=== PATIENT | female | born 1990 | race Caucasian/White ===

== ENCOUNTER 2019-05-25 07:30 | Inpatient (IN) | payer BC ==
[2019-05-25] MEDS ORDERED: Sodium Chloride 0.9% 10 ML SDV IV PRN (09:53)
[2019-05-25] MEDS ORDERED: Ondansetron 4 MG/2 ML SDV IVPUSH PRN (09:53)
[2019-05-25] MEDS ORDERED: Butorphanol 1 MG/ML SDV IVPUSH PRN (09:53)
[2019-05-25] MEDS ORDERED: Sodium Chloride 0.9% 2.5 ML Syringe FLUSH PRN (09:53)
[2019-05-25] MEDS ORDERED: Nalbuphine 10 MG/1 ML Vial IVPUSH PRN (09:53)
[2019-05-25] MEDS ORDERED: Tranexamic Acid 1,000 MG in Sodium Chloride 0.9% 100 ML IV PRN (09:53)
[2019-05-25] MEDS ORDERED: Sodium Chloride 0.9% 10 ML Syringe FLUSH PRN (09:53)
[2019-05-25] MEDS ORDERED: Water For Irrigation,Sterile 1,000 ML Container IRR PRN (09:53)
[2019-05-25] MEDS ORDERED: Carboprost Tromethamine 250 MCG/1 ML Amp IM PRN (09:53)
[2019-05-25] MEDS ORDERED: Lidocaine 1% 50 ML MDV INJECT PRN (09:53)
[2019-05-25] MEDS ORDERED: Methylergonovine 0.2 MG/1 ML Amp IM PRN (09:53)
[2019-05-25] MEDS ORDERED: Misoprostol 200 MCG Tab PO PRN (09:53)
[2019-05-25] MEDS ORDERED: Oxytocin/0.9 % Sodium Chloride 30 UNIT/500 ML BAG IV SCH ×2 (10:00→19:00)
[2019-05-25] MEDS: Lactated Ringers 1,000 ML IV SCH ×3 (10:52→18:54)
[2019-05-25] MEDS ORDERED: Bupivicaine/fentaNYL/NS 250 ML ONE (11:51)
--- NOTE | 2019-05-25 12:41 | PCM.PREANE ---
Preanesthetic Assessment - Anesthesia/Transfusion/Family Hx Anesthesia History: No Prior Anesthesia Family History of Anesthesia Reaction: No Transfusion History: No Prior Transfusion(s) - Review of Systems General: No Symptoms Pulmonary: No Symptoms Cardiovascular: No Symptoms, Other (METS>4) Gastrointestinal: Other (GERD with and also prior to , food related) Neurological: No Symptoms Other: Reports: None - Physical Assessment NPO Status Date: 05/25/19 NPO Status Time: 10:30 Vital Signs: 1030 Height: 5 ft 2.5 in Weight: 69.853 kg ASA Class: 2 Mental Status: Alert & Oriented x3 Airway Class: Mallampati = 2 Dentition: Reports: Normal Dentition Mouth Opening Finger Breadths: 3 ROM/Head Extension: Full Lungs: Clear to Auscultation, Normal Respiratory Effort Cardiovascular: Regular Rate, Regular Rhythm - Lab Values: Laboratory Last Values WBC 13.71 K/uL (4.0-11.0) H 05/25/19 10:42 RBC 4.67 M/uL (4.30-5.90) 05/25/19 10:42 Hgb 13.8 g/dL (12.0-16.0) 05/25/19 10:42 Hct 40.9 % (36.0-46.0) 05/25/19 10:42 MCV 87.6 fL (80.0-98.0) 05/25/19 10:42 MCH 29.6 pg (27.0-32.0) 05/25/19 10:42 MCHC 33.7 g/dL (31.0-37.0) 05/25/19 10:42 RDW Std Deviation 42.8 fl (28.0-62.0) 05/25/19 10:42 RDW Coeff of Kush 13 % (11.0-15.0) 05/25/19 10:42 Plt Count 306 K/uL (150-400) 05/25/19 10:42 MPV 10.50 fL (7.40-12.00) 05/25/19 10:42 Nucleated RBC % 0.0 /100WBC 05/25/19 10:42 Nucleated RBCs # 0 K/uL 05/25/19 10:42 Blood Type B POSITIVE 05/25/19 10:42 Antibody Screen NEGATIVE 05/25/19 10:42 - Allergies Allergies/Adverse Reactions: Allergies Allergy/AdvReac Type Severity Reaction Status Date / Time No Known Allergies Allergy Verified 05/25/19 09:52 - Anesthesia Plan Free Text/Narrative:: continuous epidural, discussed possible need to spinal or general Pre-Op Medication Ordered: None - Acknowledgements Anesthesia Type Planned: Epidural Pt an Appropriate Candidate for the Planned Anesthesia: Yes Alternatives and Risks of Anesthesia Discussed w Pt/Guardian: Yes Pt/Guardian Understands and Agrees with Anesthesia Plan: Yes PreAnesthesia Questionnaire - HOME MEDS Home Medications: Home Meds Vits #93/Iron Fum/FA [ Formula Tablet] 1 each PO DAILY [History] - CURRENT (IN HOUSE) MEDS Current Meds: Current Medications Butorphanol Tartrate (Stadol) 1 mg IVPUSH Q1H PRN PRN Reason: Pain Carboprost Tromethamine (Hemabate Ds) 250 mcg IM ASDIRECTED PRN PRN Reason: Post Hemorrhage Tranexamic Acid 1,000 mg/ (Sodium Chloride) 110 mls @ 660 mls/hr IV ONETIME PRN PRN Reason: Bleeding Lactated Ringer's (Ringers, Lactated) 1,000 mls @ 150 mls/hr IV ASDIRECTED ANISHA Last Admin: 05/25/19 12:22 Dose: 150 mls/hr Oxytocin/Sodium Chloride (Oxytocin 30 Unit/500 Ml-Ns) 30 unit in 500 mls @ 999 mls/hr IV TITRATE [facility] Lidocaine HCl (Xylocaine 1%) 50 ml INJECT ONETIME PRN PRN Reason: Laceration repair Methylergonovine Maleate (Methergine) 0.2 mg IM ASDIRECTED PRN PRN Reason: Post Hemorrhage Misoprostol (Cytotec) 200 mcg PO ONETIME PRN PRN Reason: Post Hemorrhage Nalbuphine HCl (Nubain) 10 mg IVPUSH Q1H PRN PRN Reason: Pain (severe 7-10) Ondansetron HCl (Zofran) 4 mg IVPUSH Q6H PRN PRN Reason: Nausea/Vomiting Sodium Chloride (Saline Flush) 10 ml FLUSH ASDIRECTED PRN PRN Reason: Keep Vein Open Sodium Chloride (Saline Flush) 2.5 ml FLUSH ASDIRECTED PRN PRN Reason: Keep Vein Open Sodium Chloride (Normal Saline) 10 ml IV ASDIRECTED PRN PRN Reason: IV Use Sterile Water (Sterile Water For Irrigation) 1,000 ml IRR ASDIRECTED PRN PRN Reason: delivery Discontinued Medications Fentanyl/Bupivacaine HCl (Fentanyl/Bupivacaine/Ns 2 Mcg-0.125% 250 Ml) Confirm Administered Dose 250 mls @ as directed .[facility] Stop: 05/25/19 11:52
[2019-05-25] MEDS ORDERED: Terbutaline 1 MG/ML SDV SUBCUT PRN (18:47)
[2019-05-25] MEDS ORDERED: Lidocaine 2% 5 ML SDV ONE (20:50)
[2019-05-25] MEDS ORDERED: Sodium Chloride 0.9% 1,000 ML IRR PRN (21:21)
[2019-05-26] MEDS ORDERED: Ondansetron 4 MG/2 ML SDV ONE (00:45)
[2019-05-26] MEDS ORDERED: fentaNYL 100 MCG/2 ML SDV ONE (00:45)
[2019-05-26] MEDS ORDERED: Lidocaine 2% 5 ML SDV ONE (00:45)
[2019-05-26] MEDS ORDERED: Dexamethasone 4 MG/ML 5 ML MDV ONE (00:45)
[2019-05-26] MEDS ORDERED: Sodium Chloride 0.9% 20 ML ONE ×2 (00:50→01:30)
[2019-05-26] MEDS ORDERED: ePHEDrine 50 MG/ML SDV ONE (00:50)
[2019-05-26] MEDS ORDERED: Oxytocin 10 Units/1 ML SDV ONE (00:50)
[2019-05-26] MEDS ORDERED: Sodium Chloride 0.9% 2.5 ML Syringe FLUSH PRN (00:56)
[2019-05-26] MEDS ORDERED: Sodium Chloride 0.9% 10 ML Syringe FLUSH PRN (00:56)
[2019-05-26] MEDS ORDERED: Citric Acid/Sodium Citrate Solution 30 ML Cup PO ONE (00:56)
[2019-05-26] MEDS ORDERED: ceFAZolin 2 GM in Premix Bag 1 BAG IV ONE (00:56)
[2019-05-26] MEDS ORDERED: Bupivacaine 0.5% 30 ML SDV ONE (00:56)
[2019-05-26] MEDS ORDERED: Sodium Chloride 0.9% 10 ML SDV IV PRN (00:56)
[2019-05-26] MEDS ORDERED: Lactated Ringers 1,000 ML IV SCH ×2 (01:00→03:15)
[2019-05-26] MEDS ORDERED: Oxytocin/0.9 % Sodium Chloride 30 UNIT/500 ML BAG IV SCH (01:00)
[2019-05-26] MEDS ORDERED: fentaNYL 100 MCG/2 ML SDV IVPUSH PRN ×2 (01:28→02:48)
[2019-05-26] MEDS ORDERED: Ondansetron 4 MG/2 ML SDV IVPUSH PRN ×2 (01:28→03:04)
[2019-05-26] MEDS ORDERED: Naloxone 0.4 MG/ML Syringe IVPUSH PRN ×2 (01:28→02:48)
[2019-05-26] MEDS ORDERED: Nalbuphine 10 MG/1 ML Vial IVPUSH PRN (01:28)
[2019-05-26] MEDS ORDERED: diphenhydrAMINE 50 MG/ML SDV IVPUSH PRN ×2 (01:28→03:04)
[2019-05-26] MEDS ORDERED: ceFAZolin 1 GM Vial ONE (01:30)
[2019-05-26] MEDS ORDERED: Morphine PF 10 MG/10 ML SDV ONE (01:31)
[2019-05-26] MEDS ORDERED: Propofol 200 MG/20 ML SDV ONE (01:50)
[2019-05-26] MEDS ORDERED: Ketorolac 30 MG/ML SDV ONE (02:44)
[2019-05-26] MEDS ORDERED: 50% Dextrose in Water 50 ML Syringe IVPUSH PRN (02:48)
[2019-05-26] MEDS ORDERED: Atropine 0.1 MG/ML 10 ML Syringe IVPUSH PRN ×2 (02:48)
[2019-05-26] MEDS ORDERED: EPINEPHrine 1:10,000 1 MG/10 ML Syringe IVPUSH PRN (02:48)
[2019-05-26] MEDS ORDERED: Albuterol 0.083% 2.5 MG/3 ML Neb Soln NEB PRN (02:48)
[2019-05-26] MEDS ORDERED: HYDROmorphone 1 MG/ML Syringe IVPUSH PRN (02:49)
--- NOTE | 2019-05-26 02:54 | PCM48HPAN ---
Post Anesthesia Note - EVALUATION WITHIN 48HRS OF ANESTHETIC Vital Signs in Normal Range: Yes Patient Participated in Evaluation: Yes Respiratory Function Stable: Yes Airway Patent: Yes Cardiovascular Function Stable: Yes Hydration Status Stable: Yes Pain Control Satisfactory: Yes Nausea and Vomiting Control Satisfactory: Yes Mental Status Recovered: Yes
[2019-05-26] MEDS ORDERED: Bisacodyl 10 MG Supp RECTAL PRN (03:04)
[2019-05-26] MEDS ORDERED: Tranexamic Acid 1,000 MG in Sodium Chloride 0.9% 100 ML IV PRN (03:04)
[2019-05-26] MEDS ORDERED: Methylergonovine 0.2 MG/1 ML Amp IM PRN (03:04)
[2019-05-26] MEDS ORDERED: Lanolin 100% Cream 7 GM Tube TOP PRN (03:04)
[2019-05-26] MEDS ORDERED: Misoprostol 200 MCG Tab RECTAL PRN (03:04)
[2019-05-26] MEDS ORDERED: Oxytocin 10 Units/1 ML SDV IM PRN (03:04)
--- NOTE | 2019-05-26 05:48 | OR ---
SURGEON: Abad Baez MD DATE OF PROCEDURE: 05/26/2019 INDICATION FOR PROCEDURE: A 28-year-old G1, P0 at 41 weeks and 1 day, presented in early labor. She received an epidural for pain control and had AROM with clear fluid. She progressed to 6cm and was augmented with Pitocin since she did not make further progress. The heart rate began to have variable and late decelerations with contractions. The Pitocin was turned off and she was repositioned and given an amnioinfusion. The heart rate did recover to baseline. Pitocin was then started again after about an hour of rest. She had arrest of dilation at 8/80/0. She also started to have recurrent decelerations again. Options were discussed with her, with arrest of descent and suspected cephalopelvic disproportion, and the baby is beginning to show signs of compromise. It would be safer to proceed with section. She was agreeable and consent signed. PREOPERATIVE DIAGNOSES: 1. Luna intrauterine at 41 weeks and 1 day. 2. Arrest of descent. POSTOPERATIVE DIAGNOSES: 1. Luna intrauterine at 41 weeks and 1 day. 2. Arrest of descent. 3. Occiput posterior presentation. PROCEDURE PERFORMED: Primary low-transverse section. ANESTHESIOLOGIST: Dr. Hester. ANESTHESIA: Epidural. FINDINGS: A viable male , scores of 2 and 6, weight of 7 pounds 7 ounces. The head was noted to be in direct occiput posterior position and wedged into the pelvis. DESCRIPTION OF PROCEDURE: The procedure was discussed with the patient in detail. Risks and complications including bleeding, infection, DVTs, injury to surrounding organs including bladder, bowel, and ureters. The patient expressed understanding. Consent signed. The patient was brought to the operating room. She received 2 g Ancef and pneumatic stockings. Epidural anesthesia was in place and bolused. Cervantes was already in place. The abdomen was prepped with chlorhexidine and vagina prepped with betadine in sterile fashion. She draped and tested for anesthesia. Epidural was adequate. Pfannenstiel incision was made with a scalpel and dissected down to fascia. Multiple sites of bleeding were noted and cauterized. The fascia was cleared of subcutaneous tissue, then incised in the midline and extended laterally bluntly. Danielle clamps were placed on the superior fascial edge. The rectus muscles were by blunt dissection and using Robbins scissors. The same process was repeated for the inferior fascial edge. The peritoneum was identified, then entered bluntly. The Almas O retractor was placed in the abdominal cavity. The bladder was noted to be far away from the site of incision. The uterus was incised with a scalpel transversely at the lower uterine segment and extended bluntly. Clear amniotic fluid was noted. The 's head was noted to be in direct occiput posterior position and extended. There was difficulty bringing the head up to the hysterotomy because it was deeply wedged in the pelvis and the assistant auto center manager was asked to push up from the vagina. A Kiwi vacuum was attempted. However, was not able to placed it at the flexion point, therefore it was removed and no pull was attempted. The head did deliver after rotating the head laterally and with fundal pressure. The umbilical cord was clamped and cut. The baby was initially hypotonic and was handed over immediately to awaiting nursery staff. Cord bloods were obtained. Placenta was delivered with gentle traction on the umbilical cord. The uterine cavity was cleaned with a lap to remove any remaining membranes. Allis clamps were used to grasp the angles and lower edges of the incision. The uterine incision was closed in 2 layers. First layer with running nonlocking suture using 0 Monocryl, second layer in vertical imbricated fashion with 0 Monocryl. The uterus was firm and the hysterotomy was hemostatic. The pericolic gutters were cleaned of any clots and irrigated with saline. The incision was again checked for hemostasis. The peritoneum was grasped with Brigette clamps and closed using 2-0 Vicryl in running fashion. The rectus muscle was examined and found to be hemostatic. The fascia was closed using 0 Vicryl in running fashion. The subcutaneous tissue was irrigated and bleeding areas cauterized. The subcutaneous layer was brought together with 3-0 plain suture in running fashion. The skin was then closed in subcuticular fashion using 4-0 Monocryl on a Anant needle. A Telfa and ABD pressure dressing was placed over the incision. The patient was stable and transferred to recovery room. She was given postop care instructions. PRESTON SHEFFIELD /[id number] [place]
[2019-05-26] MEDS: Docusate Sodium 100 MG Cap PO SCH ×2 (09:00→21:09)
[2019-05-26] MEDS: Ketorolac 30 MG/ML SDV IVPUSH SCH ×3 (09:01→21:09)
[2019-05-27] MEDS: Acetaminophen/oxyCODONE 325-5 MG Tab PO PRN ×4 (01:49→21:20)
[2019-05-27] MEDS: Ketorolac 30 MG/ML SDV IVPUSH SCH (03:03)
--- NOTE | 2019-05-27 11:21 | PCM.PNPP ---
- General Info Date of Service: 05/27/19 Subjective Update: 28yo P1 s/p primary Functional Status: Reports: Pain Controlled, Tolerating Diet, Ambulating, Urinating - Review of Systems General: Reports: No Symptoms HEENT: Reports: No Symptoms Pulmonary: Reports: No Symptoms Cardiovascular: Reports: No Symptoms Gastrointestinal: Reports: No Symptoms Genitourinary: Reports: No Symptoms Musculoskeletal: Reports: No Symptoms Skin: Reports: No Symptoms Neurological: Reports: No Symptoms Psychiatric: Reports: No Symptoms - General Info Date of Service: 05/27/19 - Patient Data Vital Signs - Most Recent: Last Vital Signs Temp 36.4 C 05/27/19 08:00 Pulse 69 05/27/19 08:00 Resp 16 05/27/19 08:00 BP 118/70 05/27/19 08:00 Pulse Ox 96 05/27/19 08:00 Weight - Most Recent: 69.853 kg I&O - Last 24 Hours: Intake & Output 05/26/19 05/27/19 05/27/19 22:59 06:59 14:59 Output Total 1200 600 Balance -1200 -600 Lab Results - Last 24 Hours: Laboratory Results - last 24 hr 05/25/19 05/27/19 Range/Units 10:42 06:00 Hgb 8.7 L (12.0-16.0) g/dL Hct 26.0 L (36.0-46.0) % RPR Non-Reac (Non-Reac) Med Orders - Current: Current Medications Albuterol (Proventil Neb Soln) 2.5 mg NEB ONETIME PRN PRN Reason: Wheezing Atropine Sulfate (Atropine 0.1 Mg/Ml) 0.5 mg IVPUSH ASDIRECTED PRN PRN Reason: Hypo-perfusion Atropine Sulfate (Atropine 0.1 Mg/Ml) 1 mg IVPUSH ASDIRECTED PRN PRN Reason: Hypo-Perfusion Bisacodyl (Dulcolax) 10 mg RECTAL ONETIME PRN PRN Reason: Constipation Butorphanol Tartrate (Stadol) 1 mg IVPUSH Q1H PRN PRN Reason: Pain Carboprost Tromethamine (Hemabate Ds) 250 mcg IM ASDIRECTED PRN PRN Reason: Post Hemorrhage Dextrose/Water (Dextrose 50% In Water) 50 ml IVPUSH ASDIRECTED PRN PRN Reason: Hypoglycemia Diphenhydramine HCl (Benadryl) 25 mg IVPUSH Q6H PRN PRN Reason: Itching or Nausea Docusate Sodium (Colace) 100 mg PO BID [facility] Last Admin: 05/26/19 21:09 Dose: 100 mg Emollient Ointment (Lansinoh Hpa) 0 gm TOP ASDIRECTED PRN PRN Reason: Sore Nipples Epinephrine HCl (Epinephrine 1:10,000) 1 mg IVPUSH ASDIRECTED PRN PRN Reason: ACLS Guidelines Fentanyl (Sublimaze) 50 mcg IVPUSH Q1H PRN PRN Reason: Pain (severe 7-10) Last Admin: 05/26/19 04:14 Dose: 50 mcg Fentanyl (Sublimaze) 50 mcg IVPUSH Q5M PRN PRN Reason: Pain Hydromorphone HCl (Dilaudid) 0.5 mg IVPUSH Q1H PRN PRN Reason: Pain Tranexamic Acid 1,000 mg/ (Sodium Chloride) 110 mls @ 660 mls/hr IV ONETIME PRN PRN Reason: Bleeding Lactated Ringer's (Ringers, Lactated) 1,000 mls @ 150 mls/hr IV ASDIRECTED [facility] Last Admin: 05/25/19 18:54 Dose: 150 mls/hr Oxytocin/Sodium Chloride (Oxytocin 30 Unit/500 Ml-Ns) 30 unit in 500 mls @ 999 mls/hr IV TITRATE [facility] Oxytocin/Sodium Chloride (Oxytocin 30 Unit/500 Ml-Ns) 30 unit in 500 mls @ 2 mls/hr IV TITRATE [facility]; Protocol Last Titration: 05/26/19 00:11 Dose: 4 munits/min, 4 mls/hr Sodium Chloride (Sodium Chloride 0.9%) 1,000 mls @ 250 mls/hr IRR ASDIRECTED PRN PRN Reason: Other Oxytocin/Sodium Chloride (Oxytocin 30 Unit/500 Ml-Ns) 30 unit in 500 mls @ 250 mls/hr IV TITRATE [facility] Lactated Ringer's (Ringers, Lactated) 1,000 mls @ 500 mls/hr IV BOLUS ANISHA Tranexamic Acid 1,000 mg/ (Sodium Chloride) 110 mls @ 660 mls/hr IV ONETIME PRN PRN Reason: Bleeding Lactated Ringer's (Ringers, Lactated) 1,000 mls @ 125 mls/hr IV ASDIRECTED ANIS[facility] Last Admin: 05/26/19 07:41 Dose: 125 mls/hr Ibuprofen (Motrin) 800 mg PO Q8H PRN PRN Reason: mild pain or fever Lidocaine HCl (Xylocaine 1%) 50 ml INJECT ONETIME PRN PRN Reason: Laceration repair Methylergonovine Maleate (Methergine) 0.2 mg IM ASDIRECTED PRN PRN Reason: Post Hemorrhage Methylergonovine Maleate (Methergine) 0.2 mg IM ONETIME PRN PRN Reason: Excessive Vaginal Bleeding Misoprostol (Cytotec) 200 mcg PO ONETIME PRN PRN Reason: Post Hemorrhage Misoprostol (Cytotec) 1,000 mcg RECTAL ONETIME PRN PRN Reason: excessive bleeding Nalbuphine HCl (Nubain) 10 mg IVPUSH Q1H PRN PRN Reason: Pain (severe 7-10) Nalbuphine HCl (Nubain) 5 mg IVPUSH ASDIRECTED PRN PRN Reason: Itching Naloxone HCl (Narcan) 0.1 mg IVPUSH ASDIRECTED PRN PRN Reason: Respiratory Depression Ondansetron HCl (Zofran) 4 mg IVPUSH Q6H PRN PRN Reason: Nausea/Vomiting Ondansetron HCl (Zofran) 4 mg IVPUSH Q6H PRN PRN Reason: Nausea Ondansetron HCl (Zofran) 4 mg IVPUSH Q4H PRN PRN Reason: Nausea/Vomiting Oxycodone/Acetaminophen (Percocet 325-5 Mg) 2 tab PO Q6H PRN PRN Reason: Pain (moderate 4-6) Oxycodone/Acetaminophen (Percocet 325-5 Mg) 1 tab PO Q4H PRN PRN Reason: Pain (moderate 4-6) Last Admin: 05/27/19 01:49 Dose: 1 tab Oxycodone/Acetaminophen (Percocet 325-5 Mg) 2 tab PO Q4H PRN PRN Reason: Pain (moderate 4-6) Oxytocin (Pitocin) 10 unit IM ASDIRECTED PRN PRN Reason: Excessive Vaginal Bleeding Sodium Chloride (Saline Flush) 10 ml FLUSH ASDIRECTED PRN PRN Reason: Keep Vein Open Sodium Chloride (Saline Flush) 2.5 ml FLUSH ASDIRECTED PRN PRN Reason: Keep Vein Open Sodium Chloride (Normal Saline) 10 ml IV ASDIRECTED PRN PRN Reason: IV Use Sodium Chloride (Saline Flush) 10 ml FLUSH ASDIRECTED PRN PRN Reason: Keep Vein Open Sodium Chloride (Saline Flush) 2.5 ml FLUSH ASDIRECTED PRN PRN Reason: Keep Vein Open Sodium Chloride (Normal Saline) 10 ml IV ASDIRECTED PRN PRN Reason: IV Use Sterile Water (Sterile Water For Irrigation) 1,000 ml IRR ASDIRECTED PRN PRN Reason: delivery Terbutaline Sulfate (Brethine) 0.25 mg SUBCUT ASDIRECTED PRN PRN Reason: Tacysystole Last Admin: 05/25/19 20:40 Dose: 0.25 mg Discontinued Medications Bupivacaine HCl (Marcaine 0.5%) Confirm Administered Dose 30 ml .ROUTE .STK-MED ONE Stop: 05/26/19 00:57 Last Admin: 05/26/19 07:41 Dose: Not Given Cefazolin Sodium (Ancef) Confirm Administered Dose 2 gm .ROUTE .STK-MED ONE Stop: 05/26/19 01:31 Citric Acid/Sodium Citrate (Bicitra Solution) 30 ml PO ONETIME ONE Stop: 05/26/19 00:57 Last Admin: 05/26/19 07:41 Dose: Not Given Dexamethasone (Dexamethasone) Confirm Administered Dose 20 mg .ROUTE .STK-MED ONE Stop: 05/26/19 00:46 Diphenhydramine HCl (Benadryl) 25 mg IVPUSH Q4H PRN PRN Reason: Itching Stop: 05/27/19 01:28 Ephedrine Sulfate (Ephedrine Sulfate) Confirm Administered Dose 50 mg .ROUTE .STK-MED ONE Stop: 05/26/19 00:51 Fentanyl (Sublimaze) Confirm Administered Dose 100 mcg .ROUTE .STK-MED ONE Stop: 05/26/19 00:46 Fentanyl/Bupivacaine HCl (Fentanyl/Bupivacaine/Ns 2 Mcg-0.125% 250 Ml) Confirm Administered Dose 250 mls @ as directed .ROUTE .STK-MED ONE Stop: 05/25/19 11:52 Last Admin: 05/26/19 07:40 Dose: Not Given Sodium Chloride (Normal Saline) Confirm Administered Dose 20 mls @ as directed .ROUTE .STK-MED ONE Stop: 05/26/19 00:51 Cefazolin Sodium/Dextrose 2 gm (/ Premix) 50 mls @ 100 mls/hr IV ONETIME ONE Stop: 05/26/19 01:25 Last Admin: 05/26/19 07:40 Dose: Not Given Sodium Chloride (Normal Saline) Confirm Administered Dose 20 mls @ as directed .ROUTE .STK-MED ONE Stop: 05/26/19 01:31 Ketorolac Tromethamine (Toradol) Confirm Administered Dose 30 mg .ROUTE .STK- MED ONE Stop: 05/26/19 02:45 Last Admin: 05/26/19 07:41 Dose: Not Given Ketorolac Tromethamine (Toradol) 30 mg IVPUSH Q6H ANIS[facility] Stop: 05/27/19 03:01 Last Admin: 05/27/19 03:03 Dose: 30 mg Lidocaine (Xylocaine-Mpf 2%) Confirm Administered Dose 10 ml .ROUTE .STK-MED ONE Stop: 05/25/19 20:51 Last Admin: 05/26/19 07:40 Dose: Not Given Lidocaine (Xylocaine-Mpf 2%) Confirm Administered Dose 20 ml .ROUTE .STK-MED ONE Stop: 05/26/19 00:46 Morphine Sulfate (Duramorph Pf) Confirm Administered Dose 10 mg .ROUTE .STK-MED ONE Stop: 05/26/19 01:32 Naloxone HCl (Narcan) 0.1 mg IVPUSH ONETIME PRN PRN Reason: Respiratory Depression Stop: 05/27/19 01:28 Ondansetron HCl (Zofran) Confirm Administered Dose 4 mg .ROUTE .STK-MED ONE Stop: 05/26/19 00:46 Oxytocin (Pitocin) Confirm Administered Dose 40 unit .ROUTE .STK-MED ONE Stop: 05/26/19 00:51 Propofol (Diprivan 20 Ml) Confirm Administered Dose 200 mg .ROUTE .STK-MED ONE Stop: 05/26/19 01:51 - Interaction Support Person: Significant Other - Recovery Exam Fundal Tone: Firm Fundal Level: 1 Fingerbreadths Below Umbilicus Fundal Placement: Midline Lochia Amount: Scant Lochia Color: Rubra/Red Perineum Description: Intact, Minimal Bruising/Swelling Episiotomy/Laceration: None Bladder Status: Voiding Urinary Elimination: Indwelling Catheter - Exam General: Alert, Oriented HEENT: Pupils Equal Neck: Supple Lungs: Clear to Auscultation Cardiovascular: Regular Rate, Regular Rhythm GI/Abdominal Exam: Normal Bowel Sounds Extremities: Normal Inspection Neurological: No New Focal Deficit Psy/Mental Status: Alert - Problem List & Annotations (1) delivery delivered SNOMED Code(s): 412909365 Code(s): O82 - ENCOUNTER FOR DELIVERY WITHOUT INDICATION Status: Acute Current Visit: Yes - Problem List Review Problem List Initiated/Reviewed/Updated: Yes - Assessment Assessment:: 28yo P1 s/p primary , POD1 Ambulating , voiding , tolerating regular diet Normal lochia - Plan Plan:: Pain control Regular diet Venodynes Ambulate Incentive spirometry Discharge home tomorrow
[2019-05-27] MEDS: Docusate Sodium 100 MG Cap PO SCH ×2 (11:59→21:21)
[2019-05-27] MEDS: Ibuprofen 800 MG Tab PO PRN (11:59)
[2019-05-28] MEDS: Acetaminophen/oxyCODONE 325-5 MG Tab PO PRN ×3 (01:21→10:58)
[2019-05-28] MEDS: Ibuprofen 800 MG Tab PO PRN ×2 (01:21→09:09)
[2019-05-28] MEDS: Docusate Sodium 100 MG Cap PO SCH (09:09)
--- NOTE | 2019-05-28 09:53 | PCM.PNPP ---
- General Info Date of Service: 05/28/19 Subjective Update: 28yo P1 s/p primary POD 2 stable Functional Status: Reports: Pain Controlled, Tolerating Diet, Ambulating, Urinating - Review of Systems General: Reports: No Symptoms HEENT: Reports: No Symptoms Pulmonary: Reports: No Symptoms Cardiovascular: Reports: No Symptoms Gastrointestinal: Reports: No Symptoms Genitourinary: Reports: No Symptoms Musculoskeletal: Reports: No Symptoms Skin: Reports: No Symptoms Neurological: Reports: No Symptoms Psychiatric: Reports: No Symptoms - General Info Date of Service: 05/28/19 - Patient Data Vital Signs - Most Recent: Last Vital Signs Temp 36.2 C 05/28/19 07:40 Pulse 73 05/28/19 07:40 Resp 16 05/28/19 07:40 BP 117/72 05/28/19 07:40 Pulse Ox 96 05/28/19 07:40 Weight - Most Recent: 69.853 kg Med Orders - Current: Current Medications Albuterol (Proventil Neb Soln) 2.5 mg NEB ONETIME PRN PRN Reason: Wheezing Atropine Sulfate (Atropine 0.1 Mg/Ml) 0.5 mg IVPUSH ASDIRECTED PRN PRN Reason: Hypo-perfusion Atropine Sulfate (Atropine 0.1 Mg/Ml) 1 mg IVPUSH ASDIRECTED PRN PRN Reason: Hypo-Perfusion Bisacodyl (Dulcolax) 10 mg RECTAL ONETIME PRN PRN Reason: Constipation Butorphanol Tartrate (Stadol) 1 mg IVPUSH Q1H PRN PRN Reason: Pain Carboprost Tromethamine (Hemabate Ds) 250 mcg IM ASDIRECTED PRN PRN Reason: Post Hemorrhage Dextrose/Water (Dextrose 50% In Water) 50 ml IVPUSH ASDIRECTED PRN PRN Reason: Hypoglycemia Diphenhydramine HCl (Benadryl) 25 mg IVPUSH Q6H PRN PRN Reason: Itching or Nausea Docusate Sodium (Colace) 100 mg PO BID ANISHA Last Admin: 05/28/19 09:09 Dose: 100 mg Emollient Ointment (Lansinoh Hpa) 0 gm TOP ASDIRECTED PRN PRN Reason: Sore Nipples Epinephrine HCl (Epinephrine 1:10,000) 1 mg IVPUSH ASDIRECTED PRN PRN Reason: ACLS Guidelines Fentanyl (Sublimaze) 50 mcg IVPUSH Q1H PRN PRN Reason: Pain (severe 7-10) Last Admin: 05/26/19 04:14 Dose: 50 mcg Fentanyl (Sublimaze) 50 mcg IVPUSH Q5M PRN PRN Reason: Pain Hydromorphone HCl (Dilaudid) 0.5 mg IVPUSH Q1H PRN PRN Reason: Pain Tranexamic Acid 1,000 mg/ (Sodium Chloride) 110 mls @ 660 mls/hr IV ONETIME PRN PRN Reason: Bleeding Lactated Ringer's (Ringers, Lactated) 1,000 mls @ 150 mls/hr IV ASDIRECTED ANISHA Last Admin: 05/25/19 18:54 Dose: 150 mls/hr Oxytocin/Sodium Chloride (Oxytocin 30 Unit/500 Ml-Ns) 30 unit in 500 mls @ 999 mls/hr IV TITRATE ANISHA Oxytocin/Sodium Chloride (Oxytocin 30 Unit/500 Ml-Ns) 30 unit in 500 mls @ 2 mls/hr IV TITRATE ANISHA; Protocol Last Titration: 05/26/19 00:11 Dose: 4 munits/min, 4 mls/hr Sodium Chloride (Sodium Chloride 0.9%) 1,000 mls @ 250 mls/hr IRR ASDIRECTED PRN PRN Reason: Other Oxytocin/Sodium Chloride (Oxytocin 30 Unit/500 Ml-Ns) 30 unit in 500 mls @ 250 mls/hr IV TITRATE ANISHA Lactated Ringer's (Ringers, Lactated) 1,000 mls @ 500 mls/hr IV BOLUS ANISHA Tranexamic Acid 1,000 mg/ (Sodium Chloride) 110 mls @ 660 mls/hr IV ONETIME PRN PRN Reason: Bleeding Lactated Ringer's (Ringers, Lactated) 1,000 mls @ 125 mls/hr IV ASDIRECTED ANISHA Last Admin: 05/26/19 07:41 Dose: 125 mls/hr Ibuprofen (Motrin) 800 mg PO Q8H PRN PRN Reason: mild pain or fever Last Admin: 05/28/19 09:09 Dose: 800 mg Lidocaine HCl (Xylocaine 1%) 50 ml INJECT ONETIME PRN PRN Reason: Laceration repair Methylergonovine Maleate (Methergine) 0.2 mg IM ASDIRECTED PRN PRN Reason: Post Hemorrhage Methylergonovine Maleate (Methergine) 0.2 mg IM ONETIME PRN PRN Reason: Excessive Vaginal Bleeding Misoprostol (Cytotec) 200 mcg PO ONETIME PRN PRN Reason: Post Hemorrhage Misoprostol (Cytotec) 1,000 mcg RECTAL ONETIME PRN PRN Reason: excessive bleeding Nalbuphine HCl (Nubain) 10 mg IVPUSH Q1H PRN PRN Reason: Pain (severe 7-10) Nalbuphine HCl (Nubain) 5 mg IVPUSH ASDIRECTED PRN PRN Reason: Itching Naloxone HCl (Narcan) 0.1 mg IVPUSH ASDIRECTED PRN PRN Reason: Respiratory Depression Ondansetron HCl (Zofran) 4 mg IVPUSH Q6H PRN PRN Reason: Nausea/Vomiting Ondansetron HCl (Zofran) 4 mg IVPUSH Q6H PRN PRN Reason: Nausea Ondansetron HCl (Zofran) 4 mg IVPUSH Q4H PRN PRN Reason: Nausea/Vomiting Oxycodone/Acetaminophen (Percocet 325-5 Mg) 2 tab PO Q6H PRN PRN Reason: Pain (moderate 4-6) Last Admin: 05/28/19 06:02 Dose: 2 tab Oxycodone/Acetaminophen (Percocet 325-5 Mg) 1 tab PO Q4H PRN PRN Reason: Pain (moderate 4-6) Last Admin: 05/28/19 01:21 Dose: 1 tab Oxycodone/Acetaminophen (Percocet 325-5 Mg) 2 tab PO Q4H PRN PRN Reason: Pain (moderate 4-6) Last Admin: 05/27/19 16:54 Dose: 2 tab Oxytocin (Pitocin) 10 unit IM ASDIRECTED PRN PRN Reason: Excessive Vaginal Bleeding Sodium Chloride (Saline Flush) 10 ml FLUSH ASDIRECTED PRN PRN Reason: Keep Vein Open Sodium Chloride (Saline Flush) 2.5 ml FLUSH ASDIRECTED PRN PRN Reason: Keep Vein Open Sodium Chloride (Normal Saline) 10 ml IV ASDIRECTED PRN PRN Reason: IV Use Sodium Chloride (Saline Flush) 10 ml FLUSH ASDIRECTED PRN PRN Reason: Keep Vein Open Sodium Chloride (Saline Flush) 2.5 ml FLUSH ASDIRECTED PRN PRN Reason: Keep Vein Open Sodium Chloride (Normal Saline) 10 ml IV ASDIRECTED PRN PRN Reason: IV Use Sterile Water (Sterile Water For Irrigation) 1,000 ml IRR ASDIRECTED PRN PRN Reason: delivery Terbutaline Sulfate (Brethine) 0.25 mg SUBCUT ASDIRECTED PRN PRN Reason: Tacysystole Last Admin: 05/25/19 20:40 Dose: 0.25 mg Discontinued Medications Bupivacaine HCl (Marcaine 0.5%) Confirm Administered Dose 30 ml .ROUTE .STK-MED ONE Stop: 05/26/19 00:57 Last Admin: 05/26/19 07:41 Dose: Not Given Cefazolin Sodium (Ancef) Confirm Administered Dose 2 gm .ROUTE .STK-MED ONE Stop: 05/26/19 01:31 Citric Acid/Sodium Citrate (Bicitra Solution) 30 ml PO ONETIME ONE Stop: 05/26/19 00:57 Last Admin: 05/26/19 07:41 Dose: Not Given Dexamethasone (Dexamethasone) Confirm Administered Dose 20 mg .ROUTE .STK-MED ONE Stop: 05/26/19 00:46 Diphenhydramine HCl (Benadryl) 25 mg IVPUSH Q4H PRN PRN Reason: Itching Stop: 05/27/19 01:28 Ephedrine Sulfate (Ephedrine Sulfate) Confirm Administered Dose 50 mg .ROUTE .STK-MED ONE Stop: 05/26/19 00:51 Fentanyl (Sublimaze) Confirm Administered Dose 100 mcg .ROUTE .STK-MED ONE Stop: 05/26/19 00:46 Fentanyl/Bupivacaine HCl (Fentanyl/Bupivacaine/Ns 2 Mcg-0.125% 250 Ml) Confirm Administered Dose 250 mls @ as directed .ROUTE .STK-MED ONE Stop: 05/25/19 11:52 Last Admin: 05/26/19 07:40 Dose: Not Given Sodium Chloride (Normal Saline) Confirm Administered Dose 20 mls @ as directed .ROUTE .STK-MED ONE Stop: 05/26/19 00:51 Cefazolin Sodium/Dextrose 2 gm (/ Premix) 50 mls @ 100 mls/hr IV ONETIME ONE Stop: 05/26/19 01:25 Last Admin: 05/26/19 07:40 Dose: Not Given Sodium Chloride (Normal Saline) Confirm Administered Dose 20 mls @ as directed .ROUTE .STK-MED ONE Stop: 05/26/19 01:31 Ketorolac Tromethamine (Toradol) Confirm Administered Dose 30 mg .ROUTE .STK- MED ONE Stop: 05/26/19 02:45 Last Admin: 05/26/19 07:41 Dose: Not Given Ketorolac Tromethamine (Toradol) 30 mg IVPUSH Q6H ANISHA Stop: 05/27/19 03:01 Last Admin: 05/27/19 03:03 Dose: 30 mg Lidocaine (Xylocaine-Mpf 2%) Confirm Administered Dose 10 ml .ROUTE .STK-MED ONE Stop: 05/25/19 20:51 Last Admin: 05/26/19 07:40 Dose: Not Given Lidocaine (Xylocaine-Mpf 2%) Confirm Administered Dose 20 ml .ROUTE .STK-MED ONE Stop: 05/26/19 00:46 Morphine Sulfate (Duramorph Pf) Confirm Administered Dose 10 mg .ROUTE .STK-MED ONE Stop: 05/26/19 01:32 Naloxone HCl (Narcan) 0.1 mg IVPUSH ONETIME PRN PRN Reason: Respiratory Depression Stop: 05/27/19 01:28 Ondansetron HCl (Zofran) Confirm Administered Dose 4 mg .ROUTE .STK-MED ONE Stop: 05/26/19 00:46 Oxytocin (Pitocin) Confirm Administered Dose 40 unit .ROUTE .STK-MED ONE Stop: 05/26/19 00:51 Propofol (Diprivan 20 Ml) Confirm Administered Dose 200 mg .ROUTE .STK-MED ONE Stop: 05/26/19 01:51 - Infant Interaction Support Person: Significant Other - Recovery Exam Fundal Tone: Firm Fundal Level: At Umbilicus Fundal Placement: Midline Lochia Amount: Scant Lochia Color: Rubra/Red Perineum Description: Intact, Minimal Bruising/Swelling Episiotomy/Laceration: None Bladder Status: Voiding Urinary Elimination: Voided - Exam General: Alert HEENT: Pupils Equal Neck: Supple Lungs: Clear to Auscultation Cardiovascular: Regular Rate GI/Abdominal Exam: Normal Bowel Sounds Extremities: Normal Inspection Wound/Incisions: Dressing Dry and Intact Neurological: No New Focal Deficit Psy/Mental Status: Alert - Problem List & Annotations (1) delivery delivered SNOMED Code(s): 210988418 Code(s): O82 - ENCOUNTER FOR DELIVERY WITHOUT INDICATION Status: Acute Current Visit: Yes - Problem List Review Problem List Initiated/Reviewed/Updated: Yes - Assessment Assessment:: 28yo P1 s/p primary , POD2 Ambulating , voiding , tolerating regular diet Normal lochia - Plan Plan:: Discharge home
== END 2019-05-28 13:25 | disposition home or self-care (01) | DRG 540 ==
LOC: MW.OBCHECK 07:30 → MW.OB 09:53 → OBSVTOIN 05-26 01:36 → MW.OB 05-26 05:32
PROVIDERS: ADMIT Obstetrics & Gynecology; ATTEND Obstetrics & Gynecology
PROC: 10D00Z1 Extraction of Products of Conception, Low, Open Approach (ICD-10-PCS; principal; 2019-05-26)
PROC: 10H07YZ Insertion of Other Device into Products of Conception, Via Natural or Artificial Opening (ICD-10-PCS; 2019-05-26)
PROC: 10907ZC Drainage of Amniotic Fluid, Therapeutic from Products of Conception, Via Natural or Artificial Opening (ICD-10-PCS; 2019-05-26)
PROC: 3E0E7GC Introduction of Other Therapeutic Substance into Products of Conception, Via Natural or Artificial Opening (ICD-10-PCS; 2019-05-26)
PROC: 3E0R3BZ Introduction of Anesthetic Agent into Spinal Canal, Percutaneous Approach (ICD-10-PCS; 2019-05-26)
DX: O48.0 Post-term pregnancy (principal); Z37.0 Single live birth; O76 Abnormality in fetal heart rate and rhythm complicating labor and delivery; O62.2 Other uterine inertia; Z3A.41 41 weeks gestation of pregnancy; Z79.899 Other long term (current) drug therapy
CPT/HCPCS: 36415; 59025; 59409; 85014; 85018; 85027; 86592; 86593; 86850; 86900; 86901; A9270-GY; J0690; J1100; J1885; J2001; J2270; J2405; J2590; J2704; J3010; J3105; J7120